=== PATIENT | female | born 1985 | race American Indian/Alaskan Native ===

== ENCOUNTER 2018-03-16 07:28 | Emergency (ER) | payer OTHER ==
[2018-03-16 07:55] VITALS: BP 119/80
[2018-03-16] MEDS ORDERED: MOTRIN PO ONE (09:03)
--- NOTE | 2018-03-16 09:23 | XRay Report ---
LUMBOSACRAL SPINE, 3 VIEWS: History: Back pain Findings: The vertebral bodies, disk spaces and posterior elements are intact. No compression deformity or malalignment. The SI joints are symmetric and unremarkable. Impression: 1. No evidence for acute injury to the lumbar spine.
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
== END 2018-03-16 10:00 | disposition home or self-care (01) ==
LOC: EDBD → ED 07:28
DX: S39.012A Strain of muscle, fascia and tendon of lower back, initial encounter (principal); S86.111A Strain of other muscle(s) and tendon(s) of posterior muscle group at lower leg level, right leg, initial encounter; E11.9 Type 2 diabetes mellitus without complications; V89.2XXA Person injured in unspecified motor-vehicle accident, traffic, initial encounter; Y93.89 Activity, other specified; Y92.488 Other paved roadways as the place of occurrence of the external cause; Y99.8 Other external cause status
CPT/HCPCS: 72100; 99283